=== PATIENT | male | born 1980 | race Caucasian/White ===

== ENCOUNTER 2017-10-26 13:05 | Emergency (ER) | payer OTHER ==
[~2017-10-26] VITALS: Ht 167.6 cm; Wt 95.3 kg
[2017-10-26] MEDS ORDERED: IBUPROFEN 600600 M1 PO (14:03)
[2017-10-26 14:38] VITALS: BP 143/95
== END 2017-10-26 14:38 | disposition home or self-care (01) ==
LOC: ER 13:05
DX: S09.8XXA Other specified injuries of head, initial encounter (principal); W22.8XXA Striking against or struck by other objects, initial encounter; Y93.89 Activity, other specified; Y92.89 Other specified places as the place of occurrence of the external cause; Y99.8 Other external cause status